=== PATIENT | female | born 1995 | race Asian ===

== ENCOUNTER 2017-01-08 02:41 | Emergency (ER) | payer MEDICARE ==
[~2017-01-08] VITALS: Ht 154.9 cm; Wt 71.7 kg
[2017-01-08 02:41] VITALS: BP_SYST 130
[2017-01-08 03:31] LABS: BASOPHILS # (AUTO) 0.1 K/uL (0.0-0.2); BASOPHILS % (AUTO) 0.5 % (0.0-2.0); EOSINOPHILS % (AUTO) 0.1 % (0.0-4.0); HEMATOCRIT 42.4 % (36-48); HEMOGLOBIN 14.1 g/dL (12.0-16.0); LYMPHOCYTES % (AUTO) 10.3 % (20.5-51.5); MEAN CORPUSCULAR HEMOGLOBIN 27 pg (27-31); MEAN CORPUSCULAR HGB CONC 33 % (32-36); MEAN CORPUSCULAR VOLUME 81 fL (79.0-98.0); MONOCYTES # (AUTO) 0.5 K/uL (0.0-1.0); MONOCYTES % (AUTO) 4.5 % (1.7-9.3); NEUTROPHILS # (AUTO) 8.6 K/uL (1.8-7.7); NEUTROPHILS % (AUTO) 84.6 % (40.0-70.0); PLATELET COUNT (AUTO) 295 K/uL (130-430); RED BLOOD CELL COUNT(AUTO) 5.22 MIL/uL (4.2-6.2); RED CELL DISTRIBUTION WIDTH 13.7 % (9.0-15.0); WHITE BLOOD COUNT (AUTO) 10.2 K/uL (4.5-11.0)
[2017-01-08 03:37] LABS: BILIRUBIN,URINE NEGATIVE (NEGATIVE); BLOOD, URINE 3+ (NEGATIVE); CLARITY/URINE CLEAR (CLEAR); COLOR,URINE YELLOW (YELLOW); GLUCOSE,URINE NEGATIVE (NEGATIVE); KETONES,URINE TRACE (NEGATIVE); LEUKOCYTE ESTERASE ,URINE NEGATIVE (NEGATIVE); NITRITE, URINE NEGATIVE (NEGATIVE); PROTEIN URINE NEGATIVE (NEGATIVE); UROBILINOGEN,URINE 0.2 (0.2-1.0)
[2017-01-08 05:40] LABS: CALCIUM 8.8 mg/dL (8.4-11.0); POTASSIUM 3.7 mmol/L (3.5-5.1)
[2017-01-08 05:41] LABS: ALBUMIN 4.1 g/dL (3.4-4.8); CREATININE 0.62 mg/dL (0.55-1.30); TOTAL BILIRUBIN 0.3 mg/dL (0.0-1.0); TOTAL PROTEIN, SERUM 7.9 g/dL (6.4-8.3)
[2017-01-08 05:54] VITALS: BP_SYST 122
[2017-01-08 06:20] LABS: BACTERIA,URINE FEW /HPF (None Seen); RBC,URINE 0-3 /HPF (0-3); WBC,URINE 0-3 /HPF (0-3)
== END 2017-01-08 05:54 | disposition home or self-care (01) ==
LOC: SED 02:41
DX: R55 Syncope and collapse (principal)
CPT/HCPCS: 36415; 70150-TC; 71010; 80053; 81000-TC; 81025; 85025; 93005; 99285

== ENCOUNTER 2018-02-26 17:55 | Emergency (ER) | payer MEDICARE ==
[~2018-02-26] VITALS: Ht 152.4 cm; Wt 72.6 kg
[2018-02-26 18:00] VITALS: BP_SYST 134
--- NOTE | 2018-02-26 18:39 | NUR ---
Patient to ER bed 04 to gown for evaluation. Side rails up.
--- NOTE | 2018-02-26 18:40 | NUR ---
Patient to ER via triage with c/o CP with cough x 1 day, patient had EKG done in triage which showed ST with no acute changes. Patient is awake, alert and oriented in no acute distress, vital signs stable, respirations even and unlabored, skin warm and dry to touch. Patient able to ambulate to bed 4 without difficulty, with slow, steady gait. Awaiting evaluation by ER MD, will continue to observe and assess.
--- NOTE | 2018-02-26 18:45 | NUR ---
Nia PEREZ SENIOR [employer] DEVELOPER at bedside to evaluate patient.
[2018-02-26] MEDS ORDERED: MAG HYDROX/AL HYDROX/SIMETH 30 ML, LIDOCAINE VISCOUS 2% 15ML (PO) 10 ML, BELLADONNA ALK... PO ONE ×3 (19:00)
[2018-02-26] MEDS ORDERED: PANTOPRAZOLE SODIUM 40 MG TAB PO ONE (19:00)
--- NOTE | 2018-02-26 19:40 | NUR ---
Nia Truong OPERA SINGER at bedside speaking to patient regarding results and plan of care, questions answered by Nia.
[2018-02-26 19:45] VITALS: BP_SYST 130
--- NOTE | 2018-02-26 19:45 | NUR ---
Patient given written and verbal discharge instructions and verbalizes understanding. ER MD discussed with patient the results and treatment provided. Patient in stable condition. ID arm band removed. Rx of Omeprazole given. Patient educated on pain management and to follow up with PMD. Pain Scale 0. Opportunity for questions provided and answered. Medication side effect fact sheet provided. Patient left ER ambulating without difficulty with slow, steady gait in no acute distress. No adverse reaction noted to medication.
== END 2018-02-26 19:45 | disposition home or self-care (01) ==
LOC: SED 17:55
DX: K21.9 Gastro-esophageal reflux disease without esophagitis (principal); R03.0 Elevated blood-pressure reading, without diagnosis of hypertension
CPT/HCPCS: 93005; 99283; J2001

== ENCOUNTER 2018-10-31 16:23 | Emergency (ER) | payer BC, MEDICARE ==
[~2018-10-31] VITALS: Ht 154.9 cm; Wt 77.1 kg
[2018-10-31 16:23] VITALS: BP_SYST 148
[2018-10-31] MEDS ORDERED: KETOROLAC TROMETHAMINE 30 MG VIAL IM ONE (17:30)
[2018-10-31 17:33] VITALS: BP_SYST 132
== END 2018-10-31 17:30 | disposition home or self-care (01) ==
LOC: SED 16:23
DX: R07.89 Other chest pain (principal); R03.0 Elevated blood-pressure reading, without diagnosis of hypertension
CPT/HCPCS: 71045; 93005; 96372; 99283; J1885

== ENCOUNTER 2019-01-15 20:01 | Emergency (ER) | payer BC ==
[~2019-01-15] VITALS: Ht 154.9 cm; Wt 74.8 kg
[2019-01-15 20:10] VITALS: BP_SYST 130
--- NOTE | 2019-01-15 20:12 | NUR ---
CARMELA Truong at bedside for medical evaluation.
--- NOTE | 2019-01-15 20:12 | NUR ---
Patient to ER bed 02 to gown for evaluation. Side rails up.
--- NOTE | 2019-01-15 20:15 | NUR ---
Patient AOx4, ambulatory, presentst to ER with complaint of dysuria and low back pain since last night. Pain 6/10. No other symptoms or complaints. Patient states hx of chlamydia.
[2019-01-15] MEDS ORDERED: NITROFURANTOIN MONOHYD/M-CRYST 100 MG CAPSULE PO ONE (20:30)
[2019-01-15] MEDS ORDERED: PHENAZOPYRIDINE HCL 100 MG TABLET PO ONE (20:30)
[2019-01-15] MEDS ORDERED: KETOROLAC TROMETHAMINE 60 MG/2 ML VIAL IM ONE (20:30)
--- NOTE | 2019-01-15 20:34 | NUR ---
medications were given, pt tolerated well. No adverse reaction, will continue to monitor.
[2019-01-15 20:52] LABS: BILIRUBIN,URINE NEGATIVE (NEGATIVE); BLOOD, URINE 2+ (NEGATIVE); CLARITY/URINE SL HAZY (CLEAR); COLOR,URINE YELLOW (YELLOW); GLUCOSE,URINE NEGATIVE (NEGATIVE); KETONES,URINE NEGATIVE (NEGATIVE); LEUKOCYTE ESTERASE ,URINE 2+ (NEGATIVE); NITRITE, URINE NEGATIVE (NEGATIVE); PROTEIN URINE NEGATIVE (NEGATIVE); UROBILINOGEN,URINE 0.2 (0.2-1.0)
[2019-01-15 21:12] VITALS: BP_SYST 122
--- NOTE | 2019-01-15 21:12 | NUR ---
Patient given written and verbal discharge instructions and verbalizes understanding. ER MD discussed with patient the results and treatment provided. Patient in stable condition. ID arm band removed. Rx of Motrin, Macrobid, and Pyridium given. Patient educated on pain management and to follow up with PMD. Pain Scale 2/10 tolerable to patient. Opportunity for questions provided and answered. Medication side effect fact sheet provided.
[2019-01-15 22:02] LABS: BACTERIA,URINE FEW /HPF (None Seen); MUCUS,URINE None Seen /LPF (None Seen); RBC,URINE 20-50 /HPF (0-3)
[2019-01-18 00:07] LABS: CHLAMYDIA TRACHOMATIS NAA Negative (Negative); NEISSERIA GONORRHOEAE NAA Negative (Negative)
== END 2019-01-15 21:12 | disposition home or self-care (01) ==
LOC: SED 20:01
DX: N39.0 Urinary tract infection, site not specified (principal); M79.10 Myalgia, unspecified site; R03.0 Elevated blood-pressure reading, without diagnosis of hypertension; Z11.3 Encounter for screening for infections with a predominantly sexual mode of transmission
CPT/HCPCS: 81000; 81025; 87086; 87491; 87591; 96372; 99283; J1885; 87186-TC

== ENCOUNTER 2019-02-19 10:19 | Emergency (ER) | payer BC ==
[~2019-02-19] VITALS: Ht 154.9 cm; Wt 76.7 kg
[2019-02-19 10:25] VITALS: BP_SYST 139
--- NOTE | 2019-02-19 10:32 | NUR ---
Patient to ER bed 7 to gown for evaluation. Side rails up. Report given to Annie ZUNIGA.
--- NOTE | 2019-02-19 10:40 | NUR ---
ER Dr. riley at bedside examining patient.
--- NOTE | 2019-02-19 10:50 | NUR ---
C/O RUQ and right flank pain. Patient reports 2 UTIs in last month and is concerned that she may have a kidney infection. Patient denies N/V/D or fever.
[2019-02-19] MEDS ORDERED: KETOROLAC TROMETHAMINE 60 MG/2 ML VIAL IM ONE (11:00)
[2019-02-19 11:18] LABS: BASOPHILS # (AUTO) 0.1 K/uL (0.0-0.2); BASOPHILS % (AUTO) 0.6 % (0.0-2.0); EOSINOPHILS % (AUTO) 0.4 % (0.0-4.0); HEMATOCRIT 43.9 % (36-48); HEMOGLOBIN 14.9 g/dL (12.0-16.0); LYMPHOCYTES # (AUTO) 1.8 K/uL (1.0-5.5); LYMPHOCYTES % (AUTO) 19.9 % (20.5-51.5); MEAN CORPUSCULAR HEMOGLOBIN 29 pg (27-31); MEAN CORPUSCULAR HGB CONC 34 % (32-36); MEAN CORPUSCULAR VOLUME 87 fL (79.0-98.0); MONOCYTES # (AUTO) 0.6 K/uL (0.0-1.0); MONOCYTES % (AUTO) 6.1 % (1.7-9.3); NEUTROPHILS # (AUTO) 6.7 K/uL (1.8-7.7); PLATELET COUNT (AUTO) 314 K/uL (130-430); RED BLOOD CELL COUNT(AUTO) 5.06 MIL/uL (4.2-6.2); RED CELL DISTRIBUTION WIDTH 13.8 % (9.0-15.0); WHITE BLOOD COUNT (AUTO) 9.2 K/uL (4.8-10.8)
[2019-02-19] MEDS ORDERED: KETOROLAC TROMETHAMINE 30 MG VIAL IVP ONE (11:30)
[2019-02-19 11:51] LABS: CALCIUM 9.3 mg/dL (8.4-11.0); CREATININE 0.58 mg/dL (0.55-1.30); POTASSIUM 3.9 mmol/L (3.5-5.1)
--- NOTE | 2019-02-19 11:51 | NUR ---
medicated with Torodaol per MD order. Will reassess.
[2019-02-19 11:56] LABS: ALBUMIN 3.8 g/dL (3.4-4.8); TOTAL BILIRUBIN 0.5 mg/dL (0.0-1.0)
--- NOTE | 2019-02-19 12:20 | NUR ---
Pt reports feeling better. Current ppain level 3/10.
[2019-02-19 12:29] VITALS: BP_SYST 139
--- NOTE | 2019-02-19 12:30 | NUR ---
Patient given written and verbal discharge instructions and verbalizes understanding. ER MD discussed with patient the results and treatment provided. Patient in stable condition. ID arm band removed. IV catheter removed intact and dressing applied, no active bleeding. Rx of Tramadol given. Patient educated on pain management and to follow up with PMD. Pain Scale 3/10.Opportunity for questions provided and answered. Medication side effect fact sheet provided.
[2019-02-21 02:07] LABS: CHLAMYDIA TRACHOMATIS NAA Negative (Negative); NEISSERIA GONORRHOEAE NAA Negative (Negative)
== END 2019-02-19 12:30 | disposition home or self-care (01) ==
LOC: SED 10:19
DX: N83.201 Unspecified ovarian cyst, right side (principal)
CPT/HCPCS: 36415; 74176; 80053; 81002; 81025; 83690; 85025; 87491; 87591; 96374; 99284; J1885

== ENCOUNTER 2019-02-22 18:02 | Observation (INO) | payer BC ==
[~2019-02-22] VITALS: Ht 154.9 cm; Wt 77.1 kg
[2019-02-22 18:02] VITALS: BP_SYST 123
--- NOTE | 2019-02-22 18:02 | NUR ---
BROUGHT BACK TO HALLWAY BED AND THEN TO ROOM #8, PLACED IN BED AND TRIAGED. REPORT GIVEN TO LUISA
--- NOTE | 2019-02-22 18:21 | NUR ---
PATIENT CAME IN COMPLAINING OF RIGHT PELVIC PAIN RADIATING TO BACK 03/12. PATIENT STATES PAIN STARTED ON MONDAY AND CAME TO ER WHEN SHE WAS DIAGNOSED WITH OVARIAN CYST. PATIENT HAS BEEN TAKING TRAMADOL FOR PAIN. PATIENT FOLLOWED UP WITH PCP THAT DAY AND SAID TO COME BACK TO ER IF PAIN OT BEING CONTROLLED. PATIENT COMPLAINING OF NAUSEA AND DIZZINESS. PATIENT ALERT AND ORIENTED X4.
--- NOTE | 2019-02-22 18:35 | NUR ---
ER Dr. GONZALEZ at bedside examining patient.
[2019-02-22] MEDS ORDERED: KETOROLAC TROMETHAMINE 60 MG/2 ML VIAL IM ONE (18:45)
[2019-02-22 18:56] LABS: BASOPHILS # (AUTO) 0.1 K/uL (0.0-0.2); BASOPHILS % (AUTO) 0.7 % (0.0-2.0); EOSINOPHILS # (AUTO) 0.1 K/uL (0.0-0.4); EOSINOPHILS % (AUTO) 0.8 % (0.0-4.0); HEMATOCRIT 44.6 % (36-48); HEMOGLOBIN 14.9 g/dL (12.0-16.0); LYMPHOCYTES # (AUTO) 2.3 K/uL (1.0-5.5); LYMPHOCYTES % (AUTO) 25.9 % (20.5-51.5); MEAN CORPUSCULAR HEMOGLOBIN 29 pg (27-31); MEAN CORPUSCULAR HGB CONC 33 % (32-36); MEAN CORPUSCULAR VOLUME 86 fL (79.0-98.0); MONOCYTES # (AUTO) 0.9 K/uL (0.0-1.0); MONOCYTES % (AUTO) 9.9 % (1.7-9.3); NEUTROPHILS # (AUTO) 5.6 K/uL (1.8-7.7); NEUTROPHILS % (AUTO) 62.7 % (40.0-70.0); PLATELET COUNT (AUTO) 302 K/uL (130-430); RED BLOOD CELL COUNT(AUTO) 5.17 MIL/uL (4.2-6.2); RED CELL DISTRIBUTION WIDTH 13.9 % (9.0-15.0); WHITE BLOOD COUNT (AUTO) 8.9 K/uL (4.8-10.8)
[2019-02-22 19:10] LABS: CALCIUM 9.2 mg/dL (8.4-11.0); CREATININE 0.72 mg/dL (0.55-1.30); POTASSIUM 4.1 mmol/L (3.5-5.1)
--- NOTE | 2019-02-22 19:10 | NUR ---
Patient transported to radiology via wheelchair, accompanied by rad staff.
--- NOTE | 2019-02-22 19:14 | NUR ---
ENDORSED CARE TO EFRAIN SALAS.
[2019-02-22 19:19] LABS: ALBUMIN 3.9 g/dL (3.4-4.8); TOTAL BILIRUBIN 0.3 mg/dL (0.0-1.0)
--- NOTE | 2019-02-22 19:47 | NUR ---
Pt returned in stable condition
[2019-02-22] MEDS ORDERED: TRAM-350 PO (20:36)
--- NOTE | 2019-02-22 20:37 | NUR ---
Medication reconciliation completed with information provided by patient.
[2019-02-22] MEDS ORDERED: KETOROLAC TROMETHAMINE 30 MG VIAL IVP PRN (21:15)
[2019-02-22] MEDS ORDERED: LR 1,000 ML IV SCH (21:15)
--- NOTE | 2019-02-22 21:29 | NUR ---
# 20 gauge angiocath placed to RT HAND. Use of asceptic technique. Opsite placed over site. Blood return noted. Blood for lab drawn from site. Flushed with 10 cc of normal saline. No evidence of infiltration noted. Patient tolerated well.
[2019-02-22] MEDS ORDERED: MORPHINE 4 MG/ML INJ. SYRINGE IVP ONE (21:30)
[2019-02-22] MEDS ORDERED: ONDANSETRON HCL 4 MG/2 ML VIAL IVP ONE (21:30)
--- NOTE | 2019-02-22 21:55 | NUR ---
Patient will be admitted to care of Dr. Dyer. Admitted to med surg unit. Will go to room 117B. Belongings list completed. Summary report printed. Report will be given at bedside.
--- NOTE | 2019-02-22 22:21 | NUR ---
ADMIT NOTE Received pt from ER to the floor with a diagnosis of ABDOMINAL PAIN AND OVARIAN CYST. Admission process initiated. patient oriented to pain management, safety and call light-teach back done.
[2019-02-22 22:26] VITALS: BP_SYST 113
[2019-02-22] MEDS: MORPHINE 2 MG/ML INJ. SYRINGE IVP PRN (22:46)
--- NOTE | 2019-02-22 23:00 | NUR ---
INITIAL NOTE AT INITIAL ASSESSMENT, PATIENT IS RESTING IN BED, STABLE, NO SIGNS OF RESPIRATORY DISTRESS. PRN MEDICATION FOR PATIENT'S PAIN COMPLAINT IS GIVEN AT THIS TIME. SISTER IS AT BEDSIDE. PLAN OF CARE FOR THE EVENING IS COMMUNICATED WITH THE PATIENT AND HER SISTER. PATIENT DEMONSTRATES CORRECT USAGE OF CALL LIGHT AT THIS TIME. BED IS LOCKED, ALARMED, AND AT THE LOWEST LEVEL. FALL, SAFETY, AND PRECAUTIONARY ISOLATION PRECAUTIONS WILL BE TAKEN THROUGHOUT THE SHIFT.
--- NOTE | 2019-02-23 01:00 | NUR ---
NOTE PATIENT IS SLEEPING, STABLE, NO SIGNS OF RESPIRATORY DISTRESS. CALL LIGHT IS WITHIN REACH. BED IS LOCKED, ALARMED, AND AT THE LOWEST LEVEL.
--- NOTE | 2019-02-23 02:30 | NUR ---
NOTE PATIENT IS SLEEPING, STABLE, NO SIGNS OF RESPIRATORY DISTRESS. CALL LIGHT IS WITHIN REACH. BED IS LOCKED, ALARMED, AND AT THE LOWEST LEVEL.
--- NOTE | 2019-02-23 03:45 | NUR ---
ROUNDS DR. MARCUS IS AT BEDSIDE AT THIS TIME, PATIENT IS AWAKE AND COMMUNICATING WITH THE DOCTOR. MD HAS NEW ORDERS AND ORDER CLARIFICATIONS, ORDERS READ BACK AND VERIFIED. PATIENT IS RESTING IN BED, STABLE, NO SIGNS OF RESPIRATORY DISTRESS. CALL LIGHT IS WITHIN REACH. BED IS LOCKED, ALARMED, AND AT THE LOWEST LEVEL.
[2019-02-23] MEDS ORDERED: ACETAMINOPHEN 500 MG TABLET PO ONE (04:00)
--- NOTE | 2019-02-23 04:03 | NUR ---
ROUND (DISCHARGE) Per patient, Dr. Dyer called her via phone and told her to discharge tonight after antibiotic, will prescribe antibiotic and sent to pharmacy electronic that the patient preferred. No order in the system at this time. Will check later again. Addendum: 02/23/19 at 2 by Sher Stroud RN WRONG TIME SHOULD BE 1603
[2019-02-23] MEDS ORDERED: ACETAMINOPHEN 500 MG TABLET PO PRN (04:30)
[2019-02-23 05:04] VITALS: BP_SYST 108
--- NOTE | 2019-02-23 05:15 | NUR ---
COMMUNICATION WITH DR. AMRIT GLORIA PAGED AT THIS TIME FOR CLARIFICATION ON ORDERS. ORDERS READY BACK, VERIFIED, AND ENTERED FOR PHARMACY APPROVAL.
[2019-02-23] MEDS: metroNIDAZOLE 500 MG TABLET PO SCH ×2 (05:38→17:33)
[2019-02-23] MEDS: DOXYCYCLINE HYCLATE 100 MG CAPSULE PO SCH ×2 (05:38→15:39)
[2019-02-23] MEDS: ACETAMINOPHEN 500 MG TABLET PO SCH ×3 (05:38→17:33)
[2019-02-23] MEDS: IBUPROFEN 600 MG TABLET PO SCH ×3 (05:39→17:33)
--- NOTE | 2019-02-23 06:00 | NUR ---
NOTE SCHEDULED PAIN MEDICATIONS AND ANTIBIOTICS GIVEN TO PATIENT AT THIS TIME. PATIENT VERBALIZED UNDERSTANDING OF NEW MEDICATIONS PER MD ORDERS. PATIENT GIVE SNACKS TO EAT WITH HER PO MEDICATIONS AT THIS TIME. SHE IS REPOSITIONED INTO BED FOR COMFORT. CALL LIGHT IS WITHIN REACH. BED IS LOCKED, ALARMED, AND AT THE LOWEST LEVEL.
--- NOTE | 2019-02-23 06:23 | NUR ---
CLOSING NOTE AT THIS TIME, PATIENT IS RESTING IN BED, STABLE, NO SIGNS OF RESPIRATORY DISTRESS. CALL LIGHT IS WITHIN REACH. BED IS LOCKED, ALARMED, AND AT THE LOWEST LEVEL. FALL, SAFETY, AND ISOLATION PRECAUTIONS HAVE BEEN IN PLACE THROUGHOUT THE SHIFT. WILL CONTINUE TO MONITOR UNTIL SHIFT REPORT IS GIVEN AT BEDSIDE TO AM NURSE.
--- NOTE | 2019-02-23 07:20 | NUR ---
OPENING NOTE Patient resting in the bed. No acute distress. Respiration even and unlabored. AAO x 4. Denied of pain. Skin warm and dry to touch. SL intact to VINNY, no redness, no swelling, patent. Discussed the safety issue, use call light when needs help, and plan of care, verbally understanding. Safety measure maintained. Call light within reached. Bed locked in low position, side rails up, Will continue to monitor.
[2019-02-23 07:50] VITALS: BP_SYST 107
[2019-02-23] MEDS: MORPHINE 2 MG/ML INJ. SYRINGE IVP PRN (08:27)
--- NOTE | 2019-02-23 08:28 | NUR ---
MORPHINE GIVEN Patient c/o right abdomen pain 8/, Morphine 1mg IVP given as ordered. No acute distress. Safety measure maintained. Call light within reached. Bed locked in low position, side rails up. Continue to monitor.
[2019-02-23] MEDS ORDERED: cefTRIAXone 1 GM IVPB PREMIX 50 ML IV ONE (09:00)
--- NOTE | 2019-02-23 10:25 | NUR ---
ROUND Patient resting in the bed and talking via phone. No acute distress. Continue on contact isolation precaution. Safety measure maintained. Call light within reached. Bed locked in low position, side rails up. Continue to monitor
[2019-02-23 11:11] VITALS: BP_SYST 95
--- NOTE | 2019-02-23 12:22 | NUR ---
ORDER OF WET MOUNT AND AEROBIC CULTURE Received the call from lab stated that the specimen needs to collect in the blue top container. Called OB department, spoke with Tanya Bobo RN regarding the collection of specimen to vaginal wet mount and cervix aerobic culture. Per Tanya Bobo helped to call Colette Moeller and with order to cancel both orders. Will confirm with Dr. Dyer when she comes.
--- NOTE | 2019-02-23 14:05 | NUR ---
ROUND Patient resting in the bed. No acute distress. Continue on contact isolation precaution. Safety measure maintained. Call light within reached. Bed locked in low position, side rails up. Continue to monitor.
[2019-02-23 15:14] VITALS: BP_SYST 104
--- NOTE | 2019-02-23 16:03 | NUR ---
ROUND (DISCHARGE) Per patient, Dr. Dyer called her via phone and told her to discharge tonight after antibiotic, will prescribe antibiotic and sent to pharmacy electronic that the patient preferred. No order in the system at this time. Will check later again.
[2019-02-23] MEDS ORDERED: METR500T PO (16:30)
[2019-02-23] MEDS ORDERED: ACET-2634 PO (16:30)
[2019-02-23] MEDS ORDERED: DOXY100C2 PO (16:30)
[2019-02-23 18:59] VITALS: BP_SYST 102
--- NOTE | 2019-02-23 19:35 | NUR ---
D/C Patient Patient given medication reconciliation form and D/C instructions. Exit Care provided. Patient verbalized understanding. MD discussed with patient the results and treatment provided. Ambulatory with steady gait for discharge to home. Patient in stable condition, ID band removed. IV catheter removed, intact and dressing applied, no active bleeding. E-prescription sent by Colette Moeller. Patient educated on pain management. All belongings sent with patient.
[2019-02-23 20:25] LABS: BILIRUBIN,URINE NEGATIVE (NEGATIVE); BLOOD, URINE NEGATIVE (NEGATIVE); CLARITY/URINE CLEAR (CLEAR); COLOR,URINE YELLOW (YELLOW); GLUCOSE,URINE NEGATIVE (NEGATIVE); KETONES,URINE 1+ (NEGATIVE); LEUKOCYTE ESTERASE ,URINE NEGATIVE (NEGATIVE); NITRITE, URINE NEGATIVE (NEGATIVE); PROTEIN URINE NEGATIVE (NEGATIVE); UROBILINOGEN,URINE 0.2 (0.2-1.0)
[2019-02-23] MEDS ORDERED: metroNIDAZOLE 500 MG TABLET PO SCH (21:00)
== END 2019-02-23 19:35 | disposition home or self-care (01) ==
LOC: SED 18:02 → SMU 21:12
PROVIDERS: ADMIT Obstetrics & Gynecology; ATTEND Obstetrics & Gynecology
DX: N94.89 Other specified conditions associated with female genital organs and menstrual cycle (principal)
CPT/HCPCS: 36415; 76830; 76857; 80053; 81003; 85025; 87086; 96365; 96372; 96375; 96376 ×2; 99285; G0378 ×2; J0696; J1885; J2270 ×3; J2405; J7120; 96374; J7060

== ENCOUNTER 2019-03-25 02:04 | Emergency (ER) | payer BC ==
[~2019-03-25] VITALS: Ht 154.9 cm; Wt 73.9 kg
[~2019-03-25 02:04] MED LIST: ACET-2634 PO; DOXY100C2 PO; METR500T PO; TRAM-350 PO
[2019-03-25 02:10] VITALS: BP_SYST 126
--- NOTE | 2019-03-25 02:10 | NUR ---
Patient to ER bed 4 to gown for evaluation. Side rails up.
--- NOTE | 2019-03-25 02:40 | NUR ---
Pt C/O RLQ ABD pain since last night. Pt has hx of ovarian cysts and has rx for Tramadol which has provided no relief. Denies any painful urination, back pain, N/V, or . Will continue to monitor.
--- NOTE | 2019-03-25 02:50 | NUR ---
ER Dr. Vyas at bedside examining patient.
[2019-03-25 02:58] LABS: BILIRUBIN,URINE NEGATIVE (NEGATIVE); BLOOD, URINE NEGATIVE (NEGATIVE); CLARITY/URINE CLEAR (CLEAR); COLOR,URINE YELLOW (YELLOW); GLUCOSE,URINE TRACE (NEGATIVE); KETONES,URINE NEGATIVE (NEGATIVE); LEUKOCYTE ESTERASE ,URINE NEGATIVE (NEGATIVE); NITRITE, URINE NEGATIVE (NEGATIVE); PH,URINE 6.5 (5.0-8.0); PROTEIN URINE NEGATIVE (NEGATIVE); UROBILINOGEN,URINE 0.2 (0.2-1.0)
[2019-03-25] MEDS ORDERED: IBUPROFEN 600 MG TABLET PO ONE (04:00)
--- NOTE | 2019-03-25 04:21 | NUR ---
Pt is resting in bed, stable. Will continue to monitor.
[2019-03-25 04:41] VITALS: BP_SYST 126
[2019-03-25 04:43] LABS: BASOPHILS # (AUTO) 0.1 K/uL (0.0-0.2); BASOPHILS % (AUTO) 0.9 % (0.0-2.0); EOSINOPHILS % (AUTO) 0.5 % (0.0-4.0); HEMOGLOBIN 14.7 g/dL (12.0-16.0); LYMPHOCYTES # (AUTO) 2.4 K/uL (1.0-5.5); LYMPHOCYTES % (AUTO) 23.6 % (20.5-51.5); MEAN CORPUSCULAR HEMOGLOBIN 29 pg (27-31); MEAN CORPUSCULAR HGB CONC 34 % (32-36); MEAN CORPUSCULAR VOLUME 86 fL (79.0-98.0); MONOCYTES # (AUTO) 0.9 K/uL (0.0-1.0); MONOCYTES % (AUTO) 8.8 % (1.7-9.3); NEUTROPHILS # (AUTO) 6.7 K/uL (1.8-7.7); NEUTROPHILS % (AUTO) 66.2 % (40.0-70.0); PLATELET COUNT (AUTO) 282 K/uL (130-430); RED BLOOD CELL COUNT(AUTO) 5.01 MIL/uL (4.2-6.2); RED CELL DISTRIBUTION WIDTH 13.4 % (9.0-15.0); WHITE BLOOD COUNT (AUTO) 10.1 K/uL (4.8-10.8)
--- NOTE | 2019-03-25 04:43 | NUR ---
Patient given written and verbal discharge instructions and verbalizes understanding. ER MD discussed with patient the results and treatment provided. Patient in stable condition. ID arm band removed. Rx of Naprosyn given. Patient educated on pain management and to follow up with PMD. Pain Scale 0. Opportunity for questions provided and answered. Medication side effect fact sheet provided.
[2019-03-25 04:54] LABS: ALBUMIN 3.8 g/dL (3.4-4.8); CREATININE 0.76 mg/dL (0.55-1.30); POTASSIUM 3.9 mmol/L (3.5-5.1)
[2019-03-25 04:55] LABS: CALCIUM 8.7 mg/dL (8.4-11.0)
[2019-03-25 05:10] LABS: TOTAL BILIRUBIN 0.1 mg/dL (0.0-1.0)
== END 2019-03-25 04:41 | disposition home or self-care (01) ==
LOC: SED 02:04
DX: S33.9XXA Sprain of unspecified parts of lumbar spine and pelvis, initial encounter (principal); R10.11 Right upper quadrant pain; Z79.899 Other long term (current) drug therapy; X58.XXXA Exposure to other specified factors, initial encounter; Y93.89 Activity, other specified; Y92.89 Other specified places as the place of occurrence of the external cause; Y99.8 Other external cause status
CPT/HCPCS: 36415; 76700-TC; 80053; 80061; 81003; 81025; 83690-TC; 85025; 99284

== ENCOUNTER 2019-11-13 11:07 | Emergency (ER) | payer BC, SELFPAY ==
[~2019-11-13] VITALS: Ht 154.9 cm; Wt 79.4 kg
[2019-11-13 11:10] VITALS: BP_SYST 142
--- NOTE | 2019-11-13 11:25 | NUR ---
Patient to ER bed 6 to gown for evaluation. Side rails up.
--- NOTE | 2019-11-13 11:27 | NUR ---
CARMELA Truong at bedside examining patient.
[2019-11-13] MEDS ORDERED: MORPHINE 4 MG/ML INJ. SYRINGE IVP ONE (11:30)
[2019-11-13] MEDS ORDERED: ONDANSETRON HCL 4 MG/2 ML VIAL IVP ONE (11:30)
--- NOTE | 2019-11-13 11:30 | NUR ---
Patient presented to ER C/O flank pain. Patient A&Ox4, ambulatory to ER, afebrile, skin pink and warm, pain 8/10, denies N/V/D. Patient states she has right flank pain x2 days with SOB since last night.
[2019-11-13 11:45] LABS: BASOPHILS % (AUTO) 0.4 % (0.0-2.0); EOSINOPHILS # (AUTO) 0.1 K/uL (0.0-0.4); HEMATOCRIT 44.9 % (36-48); HEMOGLOBIN 14.9 g/dL (12.0-16.0); LYMPHOCYTES # (AUTO) 1.7 K/uL (1.0-5.5); LYMPHOCYTES % (AUTO) 19.8 % (20.5-51.5); MEAN CORPUSCULAR HEMOGLOBIN 28 pg (27-31); MEAN CORPUSCULAR HGB CONC 33 % (32-36); MEAN CORPUSCULAR VOLUME 85 fL (79.0-98.0); MONOCYTES # (AUTO) 0.5 K/uL (0.0-1.0); MONOCYTES % (AUTO) 6.2 % (1.7-9.3); NEUTROPHILS # (AUTO) 6.1 K/uL (1.8-7.7); NEUTROPHILS % (AUTO) 72.6 % (40.0-70.0); PLATELET COUNT (AUTO) 283 K/uL (130-430); RED CELL DISTRIBUTION WIDTH 12.9 % (9.0-15.0); WHITE BLOOD COUNT (AUTO) 8.4 K/uL (4.8-10.8)
[2019-11-13 11:56] LABS: CALCIUM 8.8 mg/dL (8.4-11.0); CREATININE 0.85 mg/dL (0.55-1.30); POTASSIUM 4.4 mmol/L (3.5-5.1)
[2019-11-13 12:02] LABS: ALBUMIN 3.7 g/dL (3.4-4.8); TOTAL BILIRUBIN 0.4 mg/dL (0.0-1.0)
[2019-11-13] MEDS ORDERED: IBUPROFEN 600 MG TABLET PO ONE (12:15)
--- NOTE | 2019-11-13 12:18 | NUR ---
Patient given written and verbal discharge instructions and verbalizes understanding. ER MD discussed with patient the results and treatment provided. Patient in stable condition. ID arm band removed. IV catheter removed intact and dressing applied, no active bleeding. Rx of Ibuprofen 600 mg, Albuterol 90 mcg, Promethazine hydrochloride/ dextromethorphan hydrobromide given. Opportunity for questions provided and answered. Medication side effect fact sheet provided.
[2019-11-13 12:29] VITALS: BP_SYST 142
== END 2019-11-13 12:29 | disposition home or self-care (01) ==
LOC: SED 11:07
DX: R07.89 Other chest pain (principal); R05 Cough; Z20.828 Contact with and (suspected) exposure to other viral communicable diseases; Z79.899 Other long term (current) drug therapy
CPT/HCPCS: 36415; 71045; 76700; 80053; 83690; 85025; 96374; 96375; 99285; J2270; J2405; U0002

== ENCOUNTER 2021-05-28 02:50 | Emergency (ER) | payer BC, SELFPAY ==
[~2021-05-28] VITALS: Ht 154.9 cm; Wt 79.4 kg
[~2021-05-28 02:50] MED LIST changes: -DOXY100C2 PO; +DOXY100C5 PO
[2021-05-28 03:06] VITALS: BP_SYST 125
[2021-05-28] MEDS ORDERED: CEPH-548 PO (03:10)
--- NOTE | 2021-05-28 03:10 | NUR ---
pt arrived to er with complaints of uti like symtoms. pt complaining of vaginal pain, irritation and uti like symptoms starting 05/27/21 in the morning. pt reports 8/10 pain. pain upon urination. pt has taken nothing for pain. a&ox4
--- NOTE | 2021-05-28 03:10 | NUR ---
Placed in room 05 . Placed on library monitor, blood pressure machine and pulse oximeter. To gown for exam. Side rails up.
[2021-05-28] MEDS ORDERED: cephALEXin 500 MG CAPSULE PO ONE (03:15)
--- NOTE | 2021-05-28 03:20 | NUR ---
ER at bedside examining patient.
[2021-05-28] MEDS ORDERED: NAPR-1172 PO (03:23)
[2021-05-28] MEDS ORDERED: KETOROLAC TROMETHAMINE 60 MG/2 ML VIAL IM ONE (03:30)
--- NOTE | 2021-05-28 03:33 | NUR ---
Patient given written and verbal discharge instructions and verbalizes understanding. ER MD discussed with patient the results and treatment provided. Patient in stable condition. ID arm band removed. Rx of naproxen, cephalexin given. Patient educated on pain management and to follow up with PMD. Pain Scale 5/10. Opportunity for questions provided and answered. Medication side effect fact sheet provided.
[2021-05-28 03:35] VITALS: BP_SYST 125
== END 2021-05-28 03:33 | disposition home or self-care (01) ==
LOC: SED 02:50
DX: R30.0 Dysuria (principal); Z79.899 Other long term (current) drug therapy
CPT/HCPCS: 81002; 81025; 96372; 99283; J1885